=== PATIENT | female | born 1975 | race Caucasian/White ===

== ENCOUNTER → 2024-05-06 | Outpatient (CLI) | payer OTHER, SELFPAY ==
--- NOTE | 2024-05-06 15:00 | NEURO ---
NCS and/or EMG Patient Report Ordering Doctor: Maryjane Wright DATE OF SERVICE: 05/06/24 Joanne presents with complaints of numbness and tingling in the left hand. She has neck pain radiating into the arm. Electrodiagnostic findings: Left median motor nerve demonstrates normal distal latency, amplitude and conduction velocity. Left ulnar motor response is within normal limits. Sensory responses are normal. Needle EMG testing was performed in the left upper limb. 1+ fibrillations were noted in the left flexor carpi ulnaris, left first dorsal interosseous and left lower cervical paraspinals. Motor unit action potentials are of normal amplitude and duration. Electrodiagnostic impression: This is and abnormal study in the left upper limb 1. Electrodiagnostic findings suggestive of acute left C8 radiculopathy. Consider clinical correlation with cervical spine imaging. 2. No electrodiagnostic evidence is noted for peripheral neuropathy, including carpal tunnel or cubital tunnel syndrome. Multi Select Codes Neurology Neurology Interp Codes: 34621-43 Musc test done w/n test comp (interp) and 52198-55 Nrv cndj test 7-8 studies (interp)
== END | disposition home or self-care (01) ==
PROVIDERS: Referring Provider Physician Assistant; Visit Provider Physician Assistant
DX: M79.642 Pain in left hand (principal); R20.2 Paresthesia of skin
CPT/HCPCS: 95886; 95910